=== PATIENT | male | born 1995 | race Caucasian/White ===

== ENCOUNTER 2018-03-03 15:07 | Emergency (ER) | payer SELFPAY ==
[2018-03-03 15:38] VITALS: BP 146/93
[2018-03-03] MEDS ORDERED: CLINDAMYCIN HCL 150 MG CAPSULE PO ONE (15:48)
[2018-03-03] MEDS ORDERED: PREDNISONE 20 MG TABLET PO ONE (15:48)
[2018-03-03] MEDS ORDERED: ACETAMINOPHEN 325 MG TABLET PO ONE (15:49)
--- NOTE | 2018-03-03 15:51 | ER Document Report ---
HPI - HPI Patient complains to provider of: Arm pain and swelling Time Seen by Provider: 03/03/18 15:37 Onset/Duration: Worse Quality of pain: Achy Pain Level: 5 Context: Patient presents complaining of rash to the extremities and trunk for the past 2 weeks. Patient states that today the right arm started to swell. Patient states that he has been trying to eradicate bedbugs in his home and thinks that he has diffuse bedbug bites to his body although he states that his other family members are not having symptoms like he is. Patient denies any fever. Associated Symptoms: Other - Skin rash, right arm swelling Exacerbated by: Movement Relieved by: Denies Similar symptoms previously: No Recently seen / treated by doctor: No - ROS ROS below otherwise negative: Yes Systems Reviewed and Negative: Yes All other systems reviewed and negative - CONSTITUTIONAL Constitutional: DENIES: Fever, Chills - CARDIOVASCULAR Cardiovascular: DENIES: Chest pain - RESPIRATORY Respiratory: DENIES: Trouble Breathing, Coughing - GASTROINTESTINAL Gastrointestinal: DENIES: Nausea - MUSCULOSKELETAL Musculoskeletal: REPORTS: Extremity pain, Swelling - DERM Skin Color: Erythema Skin Problems: Rash Past Medical History - General Information source: Patient - Social History Smoking Status: Never Smoker Frequency of alcohol use: Occasional Drug Abuse: None Occupation: Dishwashing Family History: Reviewed & Not Pertinent Patient has suicidal ideation: No Patient has homicidal ideation: No Renal/ Medical History: Denies: Hx Peritoneal Dialysis Psychiatric Medical History: Reports: Hx Attention Deficit Hyperactivity Disorder Surgical Hx: Negative Vertical Provider Document - CONSTITUTIONAL Agree With Documented VS: Yes Exam Limitations: No Limitations General Appearance: WD/WN, No Apparent Distress - HEENT HEENT: Atraumatic, Normocephalic - NECK Neck: Normal Inspection - RESPIRATORY Respiratory: Breath Sounds Normal, No Respiratory Distress - CARDIOVASCULAR Cardiovascular: Regular Rate, Regular Rhythm Pulses: Normal: Radial - MUSCULOSKELETAL/EXTREMETIES Musculoskeletal/Extremeties: MAEW, Tender - NEURO Level of Consciousness: Awake, Alert, Appropriate Motor/Sensory: No Motor Deficit - DERM Integumentary: Warm, Dry, Rash - Diffuse erythematous papular rash with scaling, skin flaking and excoriations to trunk and extremities. Patient with right upper extremity swelling with superimposed erythema worrisome for developing cellulitis. Course - Re-evaluation Re-evalutation: 03/03/18 15:[address] Renzo Muller to bedside for examination. Advises obtaining RPR as well as venous Doppler of the right upper extremity. Agrees with plan to treat for likely eczema flare 03/03/18 No DVT noted to right upper extremity per preliminary Doppler report. Patient nontoxic in appearance. No concern for sepsis. Patient does present with skin lesions concerning for eczema. Patient advised that he will need to use emollients frequently as well as be on a steroid course. Discussed worsening symptoms that patient should return immediately for. Patient verbalized understanding and agrees with this plan of care. - Vital Signs Vital signs: Temp Pulse Resp BP Pulse Ox 97.9 F 71 16 146/93 H 100 03/03/18 15:37 03/03/18 15:37 03/03/18 15:37 03/03/18 15:37 03/03/18 15:37 - Diagnostic Test Radiology reviewed: Pending Discharge - Discharge Clinical Impression: Eczema Qualifiers: Eczema type: unspecified Qualified Code(s): L30.9 - Dermatitis, unspecified Cellulitis Qualifiers: Site of cellulitis: extremity Site of cellulitis of extremity: upper extremity Laterality: right Qualified Code(s): L03.113 - Cellulitis of right upper limb Condition: Stable Disposition: HOME, SELF-CARE Instructions: Atopic Dermatitis (Eczema) ([facility]), Cellulitis ([facility]), Clindamycin ([facility]) Additional Instructions: Return immediately for any new or worsening symptoms Followup with your primary care provider, call tomorrow to make a followup appointment Avoid scratching at the skin Use a lotion such as Lubriderm, Cetaphil or Aquaphor to moisturize skin at least twice daily Prescriptions: Clindamycin HCl [Cleocin Hcl] 300 mg PO QID #28 capsule Hydrocodone/Acetaminophen [[place] 5-325 mg Tablet] 1 tab PO Q6 PRN #10 tablet PRN Reason: Hydroxyzine HCl [Atarax 25 mg Tablet] 1 - 2 tab PO QID #20 tablet Prednisone [Deltasone 5 mg Tablet] 5 mg PO ASDIR PRN #100 tablet PRN Reason: Forms: Return to Work Referrals: [facility] [Provider Group] - Follow up as needed [facility] [Provider Group] - Follow up as needed
--- NOTE | 2018-03-03 17:20 | RADIOLOGY REPORT (SQ) ---
EXAM DESCRIPTION: VENOUS UNILATERAL UPPER COMPLETED DATE/TIME: 03/03/2018 5:10 pm REASON FOR STUDY: RUE swelling COMPARISON: None. TECHNIQUE: Dynamic and static vásquez scale and color images acquired of the right arm venous system. S elected spectral images acquired with additional compression and augmentation maneuvers. The contrala teral subclavian vein and internal jugular vein were also imaged. Images stored on PACS. LIMITATIONS: None. FINDINGS: INTERNAL JUGULAR VEIN: Normal phasicity, compression, augmentation. No visualized echogeni c material on vásquez scale. No defects on color images. Comparison opposite side normal. SUBCLAVIAN VEIN: Normal compression, augmentation. No visualized echogenic material on vásquez scale. No defects on color images. AXILLARY VEIN: Normal compression, augmentation. No visualized echogenic material on vásquez scale. No d efects on color images. BRACHIAL VEIN: Normal compression, augmentation. No visualized echogenic material on vásquez scale. No d efects on color images. BASILIC VEIN: Normal compression, augmentation. No visualized echogenic material on vásquez scale. No de fects on color images. CEPHALIC VEIN: Normal compression, augmentation. No visualized echogenic material on vásquez scale. No d efects on color images. OTHER: No other significant finding. CONTRALATERAL SUBCLAVIAN VEIN AND INTERNAL JUGULAR VEIN: Normal phasicity, compression and augmentation. No visualized echogenic material on vásquez scale. No de fects on color images. IMPRESSION: Negative examination for deep venous thrombosis in the right upper extremity. TECHNICAL DOCUMENTATION: JOB ID: [id number] [employer]- All Rights Reserved Reading location - IP/workstation name: [email or web address]
== END 2018-03-03 17:07 | disposition home or self-care (01) ==
LOC: ER 15:07
DX: L03.113 Cellulitis of right upper limb (principal); L30.9 Dermatitis, unspecified; M79.601 Pain in right arm
CPT/HCPCS: 99284; 36415; 86592; 93971; J7512

== ENCOUNTER 2018-03-14 21:29 | Emergency (ER) | payer SELFPAY ==
[2018-03-14 21:36] VITALS: BP 161/100
--- NOTE | 2018-03-15 00:31 | ER Document Report ---
ED Neck/Back Problem - General Chief Complaint: Neck Problem Stated Complaint: NECK PAIN Time Seen by Provider: 03/15/18 00:31 Mode of Arrival: Ambulatory Information source: Patient Notes: HISTORY OF PRESENT ILLNESS: Patient is a 23-year-old male with a past medical history of eczema who presents with right-sided neck pain. Patient denies injury, pain is been ongoing for 2 days and not any better, patient does have a history of intermittent neck pain in the past because he has "mild scoliosis." Patient denies fevers or chills, no rashes, no cough or congestion, no vision changes, no confusion or disorientation, no acute injury. Onset: 2 days ago Provocation: Twisting, movement Quality: Aching Radiation: None Severity: Moderate Timing: Constant REVIEW OF SYSTEMS: CONSTITUTIONAL : Denies fever or chills, no sweats. Denies recent illness. EENT: Denies eye, ear, throat, or mouth pain or symptoms. Denies nasal or sinus congestion. CARDIOVASCULAR: Denies chest pain. RESPIRATORY: Denies cough, cold, or chest congestion. Denies shortness of breath, difficulty breathing, or wheezing. GASTROINTESTINAL: Denies abdominal pain. Denies nausea, vomiting, or diarrhea. Denies constipation. GENITOURINARY: Denies difficulty urinating, painful urination, burning, frequency, or blood in urine. MUSCULOSKELETAL: Positive neck pain but no back pain or joint pain or swelling. SKIN: Denies rash or skin lesions. HEMATOLOGIC : Denies easy bruising or bleeding. LYMPHATIC: Denies swollen, enlarged glands. NEUROLOGICAL: Denies altered mental status or loss of consciousness. Denies headache. Denies weakness or paralysis or loss of use of either side. Denies problems with gait or speech. Denies sensory or motor loss. PSYCHIATRIC: Denies anxiety or stress or depression. All other systems reviewed and negative. PHYSICAL EXAMINATION: GENERAL: Well-appearing, well-nourished and in no acute distress. HEAD: Atraumatic, normocephalic. No scalp deformity, depression, or crepitance. EYES: Pupils are 3 mm and equal/round/reactive to light, extraocular movements intact, sclera anicteric, conjunctiva are normal. ENT: Nares patent bilaterally, oropharynx clear without exudates or palatal petechia. Moist mucous membranes. No tonsil hypertrophy. NECK: Moderate tenderness to the paraspinal musculature in the cervical spine, somewhat limited range of motion secondary to pain, supple without lymphadenopathy. LUNGS: Breath sounds present, equal, and clear to auscultation bilaterally. No wheezes, rales, or rhonchi. HEART: Regular rate and rhythm without murmurs, rubs, or gallops. 2+ peripheral pulses. Normal capillary refill. ABDOMEN: Soft, nontender, nondistended. Normoactive bowel sounds. No guarding, no rebound. No masses appreciated. EXTREMITIES: Normal range of motion, no pitting or edema. No cyanosis. NEUROLOGICAL: No focal neurological deficits. Moves all extremities spontaneously and on command. PSYCH: Normal mood, normal affect. No suicidal thoughts/ideations. No homocidal thoughts/ideations. No hallucinations. SKIN: Warm, dry, normal turgor, no rashes or lesions noted. ASSESSMENT AND PLAN: This patient is a 23-year-old male who presents with likely cervical muscle strain given normal CT scan and no report of injury or neurologic symptoms. 1. Will give intramuscular Toradol as well as oral baclofen. 2. Will discharge home with return precautions and follow-up with orthopedic surgery as needed. Patient voices understanding and agreeing with the plan. - Related Data Allergies/Adverse Reactions: Penicillins Allergy (Verified 03/03/18 15:10) Past Medical History - General Information source: Patient - Social History Smoking Status: Never Smoker Chew tobacco use (# tins/day): No Frequency of alcohol use: Heavy Drug Abuse: None Lives with: Family Family History: Reviewed & Not Pertinent Patient has suicidal ideation: No Patient has homicidal ideation: No - Medical History Medical History: Negative - Past Medical History Cardiac Medical History: Reports: None Pulmonary Medical History: Reports: None EENT Medical History: Reports: None Neurological Medical History: Reports: None Endocrine Medical History: Reports: None Renal/ Medical History: Reports: None. Denies: Hx Peritoneal Dialysis Malignancy Medical History: Reports None GI Medical History: Reports: None Musculoskeletal Medical History: Reports None Skin Medical History: Reports None Psychiatric Medical History: Reports: Hx Attention Deficit Hyperactivity Disorder Traumatic Medical History: Reports: None Infectious Medical History: Reports: None Surgical Hx: Negative Past Surgical History: Reports: None - Immunizations Immunizations up to date: Yes Hx Diphtheria, Pertussis, Tetanus Vaccination: Yes Physical Exam - Vital signs Vitals: Temp Pulse Resp BP Pulse Ox 98.1 F 110 H 17 161/100 H 97 03/14/18 21:35 03/14/18 21:35 03/14/18 21:35 03/14/18 21:35 03/14/18 21:35 Course - Vital Signs Vital signs: Temp Pulse Resp BP Pulse Ox 98.1 F 110 H 17 161/100 H 97 03/14/18 21:35 03/14/18 21:35 03/14/18 21:35 03/14/18 21:35 03/14/18 21:35 - Diagnostic Test Radiology reviewed: Image reviewed, Reports reviewed Discharge - Discharge Clinical Impression: Cervical muscle strain Qualifiers: Encounter type: initial encounter Qualified Code(s): S16.1XXA - Strain of muscle, fascia and tendon at neck level, initial encounter Condition: Good Disposition: HOME, SELF-CARE Instructions: Neck Injury (Cervical Strain) ([facility]) Additional Instructions: You have been evaluated in the Emergency Department for neck pain that is most likely muscle soreness also known as a muscle strain. Please follow-up with your primary physician as well as an orthopedist as instructed in 1-2 weeks to be reassessed. Return to the Emergency Department if you experience worsening pain, numbness/tingling of the extremities, difficulty walking, or any other concerning symptoms. Prescriptions: Baclofen [Baclofen 10 mg Tablet] 10 mg PO BID PRN #30 tablet PRN Reason: Muscle Spasms Diclofenac Sodium 75 mg PO BID #30 tablet.dr Referrals: DANNY CMKEON MD [ASSOCIATE] - Follow up as needed Print Language: Kinyarwanda
[2018-03-15] MEDS ORDERED: BACLOFEN 10 MG TABLET PO ONE (01:08)
[2018-03-15] MEDS ORDERED: KETOROLAC TROMETHAMINE 60 MG/2 ML SDV IM ONE (01:08)
--- NOTE | 2018-03-15 01:10 | RADIOLOGY REPORT (SQ) ---
CT CERVICAL SPINE WITHOUT IV CONTRAST HISTORY: Neck pain. COMPARISON: None. TECHNIQUE: CT scan of the cervical spine without IV contrast. This exam was performed according to our departmental dose-optimization program, which includes automated exposure control, adjustment of the mA and/or kV according to patient size and/or use of iterative reconstruction technique. FINDINGS: No acute cervical fracture or prevertebral soft tissue swelling is seen. There is reversal of the normal cervical lordosis, which may be due to cervical collar, muscle spasm, or patient positioning. The disc spaces are preserved. The facet joints are intact. No spinal canal stenosis. IMPRESSION: 1. No acute fracture of the cervical spine. 2. No canal stenosis.
== END 2018-03-15 01:27 | disposition home or self-care (01) ==
LOC: ER 21:29
DX: S16.1XXA Strain of muscle, fascia and tendon at neck level, initial encounter (principal); X58.XXXA Exposure to other specified factors, initial encounter; Z88.0 Allergy status to penicillin
CPT/HCPCS: 99283; 72125; J1885